=== PATIENT | female | born 1965 | race African-American/Black ===

== ENCOUNTER 2019-10-26 12:07 | Inpatient (IN) | payer OTHER ==
[2019-10-26 14:43] VITALS: BMI 23.3
--- NOTE | 2019-10-26 15:21 | HP ---
CIWA Score Nausea/Vomitin Muscle Tremors: 2 Anxiety: 3 Agitation: 3 Paroxysmal Sweats: 1-Minimal Palms Moist Orientation: 0-Oriented Tacttile Disturbances: 1-Very Mild Itch/Numbness Auditory Disturbances: 0-None Visual Disturbances: 0-None Headache: 2-Mild CIWA-Ar Total Score: 14 - Admission Criteria OASAS Guidelines: Admission for Medically Managed Detox: Requires at least one of the followin. CIWA greater than 12 2. Seizures within the past 24 hours 3. Delirium tremens within the past 24 hours 4. Hallucinations within the past 24 hours 5. Acute intervention needed for co occurring medical disorder 6. Acute intervention needed for co occurring psychiatric disorder 7. Severe withdrawal that cannot be handled at a lower level of care (continued vomiting, continued diarrhea, abnormal vital signs) requiring intravenous medication and/or fluids 8. Admitting History and Physical - Admission Chief Complaint: i need help to stop drinking alcohol History of Present Illness: this 54 years old female with alcohol dependence,seeking detox,withdrawal symptom, seen in [facility] in emergency,this morning refer for detox no seizure syncope last detox 06/23 did not recall the facility first time to this facility History Source: Patient Limitations to Obtaining History: No Limitations - Past Medical History [employer] TECHNICIAN: Yes: Syncope ...LMP Comment: 09/26/19 ...: No ...: 2 ...Para: 2 - Smoking History Smoking history: Current every day smoker Have you smoked in the past 12 months: Yes Aproximately how many cigarettes per day: 1 - Alcohol/Substance Use Hx Alcohol Use: Yes History of Substance Use: reports: Cocaine - Social History Usual Living Arrangement: Yes: With Child ADL: Independent Occupation: retail History of Recent Travel: No Other Social History: this 54 years old female with alcohol dependence,living with kaylee,. smoke occasionally,fail aa meeting,has a job,need help to stop drinking Admission ROS [facility] - HPI Chief Complaint: i need help to stop drinking alcohol Allergies/Adverse Reactions: Allergies Allergy/AdvReac Type Severity Reaction Status Date / Time Penicillins Allergy Verified 10/26/19 14:33 History of Present Illness: this 54 years old female with alcohol dependence,seeking detox,withdrawal symptom,seen in er at [facility] am, syncope denied seizure smoke occasionally last detox may 2019 ,did not recall the facility longest sobriety 293 days plan for going back to work,aa meeting multiple admissions in different detox facilities in the past never been in this facility history of frequent falls Exam Limitations: No Limitations - Ebola screening Have you traveled outside of the country in the last 21 days: No ([place]) Have you had contact with anyone from an Ebola affected area: No - Review of Systems Constitutional: Loss of Appetite, Night Sweats, Changes in sleep, Weakness EENT: reports: Nose Congestion Respiratory: reports: No Symptoms reported Cardiac: reports: No Symptoms Reported GI: reports: Nausea, Poor Appetite, Abdominal cramping : reports: No Symptoms Reported Musculoskeletal: reports: Back Pain, Muscle Pain Integumentary: reports: Dryness Neuro: reports: Headache, Tremors Endocrine: reports: No Symptoms Reported Hematology: reports: No Symptoms Reported Psychiatric: reports: No Sypmtoms Reported Other Systems: Reviewed and Negative Patient History - Patient Medical History Hx Anemia: No Hx Asthma: No Hx Chronic Obstructive Pulmonary Disease (COPD): No Hx Cancer: No Hx Cardiac Disorders: No Hx Congestive Heart Failure: No Hx Hypertension: No Hx Hypercholesterolemia: No Hx Pacemaker: No HX Cerebrovascular Accident: No Hx Seizures: No Hx Dementia: No Hx Diabetes: No Hx Gastrointestinal Disorders: No Hx Liver Disease: No Hx Genitourinary Disorders: No Hx Sexually Transmitted Disorders: No Hx Renal Disease (ESRD): No Hx Thyroid Disease: No Hx Human Immunodeficiency Virus (HIV): No (last 20 years negative) Hx Hepatitis C: No Hx Depression: No Hx Suicide Attempt: No Hx Bipolar Disorder: No Hx Schizophrenia: No Other Medical History: no suicidal,no homicidal,frequent falls - PPD History Previous Implant?: Yes Documented Results: Negative w/o proof Implanted On Prior [facility] Admission?: No PPD to be Administered?: Yes - Reproductive History Patient is a Female of Child Bearing Age (11 -55 yrs old): Yes Last Menstrual Period: 09/26/19 Patient : No - Smoking Cessation Smoking history: Current every day smoker Have you smoked in the past 12 months: Yes Aproximately how many cigarettes per day: 1 Hx Chewing Tobacco Use: No Initiated information on smoking cessation: Yes 'Breaking Loose' booklet given: 10/26/19 - Substance & Tx. History Hx Alcohol Use: Yes Hx Substance Use: No Substance Use Type: Alcohol Hx Substance Use Treatment: Yes (05/23 unknown facility) - Substances abused Alcohol Substance route: Oral Frequency: Daily Amount used: 1 LITER OR RUM, Age of first use: 18 Date of last use: 10/26/19 Admission Physical Exam [facility] - Vital Signs Vital Signs: Vital Signs - 24 hr 10/26/19 10/26/19 14:32 15:12 Temperature 99.0 F 99.0 F Pulse Rate 98 H 98 H Respiratory 20 20 Rate Blood Pressure 138/83 138/83 - Physical General Appearance: Yes: Moderate Distress, Tremorous, Irritable, Sweating, Anxious HEENTM: Yes: Normal ENT Inspection, OSCAR, Pharynx Normal Respiratory: Yes: Lungs Clear, Normal Breath Sounds, No Respiratory Distress Neck: Yes: Within Normal Limits, Supple, Trachea in good position Breast: Yes: Breast Exam Deferred Cardiology: Yes: Within Normal Limits, Regular Rhythm, Regular Rate, S1, S2 Abdominal: Yes: Within Normal Limits, Normal Bowel Sounds, Non Tender, Flat, Soft Genitourinary: Yes: Within Normal Limits Back: Yes: Muscle Spasm Musculoskeletal: Yes: Back pain, Muscle Pain Extremities: Yes: Tremors 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, Fully Oriented, Alert, Motor Strength 5/5 Integumentary: Yes: Dry Lymphatic: Yes: Within Normal Limits - Diagnostic (1) Alcohol dependence with uncomplicated withdrawal Current Visit: Yes Status: Acute (2) Alcohol intoxication Current Visit: Yes Status: Acute (3) Syncope Current Visit: Yes Status: Acute (4) Frequent falls Current Visit: Yes Status: Acute Cleared for Admission [facility] - Detox or Rehab [facility] Level of Care: Medically Managed Detox Regimen/Protocol: Librium Breathalyzer - Breathalyzer Breathalyzer: 0.141 Urine Drug Screen - Test Device Lot number: [id number] Expiration date: 06/04/21 - Control Is test valid?: Yes - Results Drug screen NEGATIVE: No Urine drug screen results: BZO-Benzodiazepines Inpatient Rehab Admission - Rehab Decision to Admit Inpatient rehab admission?: No
[2019-10-26] MEDS ORDERED: MAGNESIUM HYDROX 2400MG/30ML ORAL SUSPENSION 30 ML CUP PO PRN (15:42)
[2019-10-26] MEDS ORDERED: IBUPROFEN 400 MG TABLET (FP) PO PRN (15:42)
[2019-10-26] MEDS ORDERED: chlordiazePOXIDE HCL 25 MG CAPSULE PO PRN (15:42)
[2019-10-26] MEDS ORDERED: MENTHOL/PHENOL 1 EACH UD MM PRN (15:42)
[2019-10-26] MEDS ORDERED: ACETAMINOPHEN 325 MG TABLET (FP) PO PRN ×2 (15:42)
[2019-10-26] MEDS ORDERED: MAG HYDROX/AL HYDROX/SIMETH 30 ML UNIT-DOSE CUP PO PRN (15:42)
[2019-10-26] MEDS ORDERED: MAGNESIUM CITRATE 300 ML BOTTLE PO PRN (15:42)
[2019-10-26] MEDS: chlordiazePOXIDE HCL 25 MG CAPSULE PO SCH ×2 (16:47→22:29)
[2019-10-26] MEDS: MELATONIN 5 MG TABLETS PO PRN (22:29)
[2019-10-26] MEDS: THIAMINE HCL 100 MG TABLET (FP) PO SCH (22:29)
[2019-10-26] MEDS: METHOCARBAMOL 500 MG TABLET PO PRN (22:30)
[2019-10-27] MEDS: hydrOXYzine PAMOATE 25 MG CAPSULE (FP) PO PRN ×3 (00:43→13:36)
[2019-10-27] MEDS: chlordiazePOXIDE HCL 25 MG CAPSULE PO SCH ×4 (05:18→22:09)
[2019-10-27] MEDS: PRENATAL VITAMINS W/ FOLIC ACID TABLET (FP) PO SCH (10:17)
[2019-10-27 10:44] LABS: ALBUMIN 3.8 g/dl (3.4-5.0); BLOOD UREA NITROGEN 8.6 mg/dL (7-18); CALCIUM 9.3 mg/dL (8.5-10.1); CREATININE 0.7 mg/dL (0.55-1.3); POTASSIUM 3.3 mmol/L (3.5-5.1)
[2019-10-27 10:46] LABS: HEMATOCRIT 38.7 % (32.4-45.2); MCH 30.1 pg (25.7-33.7); MCHC 33.5 g/dl (32.0-36.0); MEAN PLT VOLUME 8.1 fl (7.5-11.1); PLATELET COUNT 219 K/MM3 (134-434); RBC 4.31 M/mm3 (3.60-5.2); RDW 14.7 % (11.6-15.6); WHITE BLOOD COUNT 4.8 K/mm3 (4.0-10.0)
--- NOTE | 2019-10-27 11:12 | PN ---
S CIWA - CIWA Score Nausea/Vomitin-No Nausea/No Vomiting Muscle Tremors: 3 Anxiety: 3 Agitation: 3 Paroxysmal Sweats: 3 Orientation: 0-Oriented Tacttile Disturbances: 0-None Auditory Disturbances: 0-None Visual Disturbances: 0-None Headache: 2-Mild CIWA-Ar Total Score: 14 S Progress Note (SOAP) Subjective: headache sweats shakes insomnia body aches restless cut over my left eyebrow i cant recall how it happened Objective: 10/27/19 11:09 Vital Signs Temperature 98.2 F 10/27/19 09:26 Pulse Rate 107 H 10/27/19 09:26 Respiratory Rate 18 10/27/19 09:26 Blood Pressure 127/76 10/27/19 09:26 O2 Sat by Pulse Oximetry (%) Laboratory Tests 10/27/19 10/27/19 07:45 07:45 WBC 4.8 RBC 4.31 Hgb 13.0 Hct 38.7 MCV 90.0 MCH 30.1 MCHC 33.5 RDW 14.7 Plt Count 219 MPV 8.1 Sodium 141 Potassium 3.3 L Chloride 101 Carbon Dioxide 29 Anion Gap 11 BUN 8.6 Creatinine 0.7 Est GFR (CKD-EPI)AfAm 115.45 Est GFR (CKD-EPI)NonAf 99.62 Random Glucose 100 Calcium 9.3 Total Bilirubin 1.0 AST 42 H ALT 28 Alkaline Phosphatase 86 Total Protein 7.0 Albumin 3.8 labs noted mild low potassium 3.3; will order kdur aaox3 ambulating no acute distress Assessment: 10/27/19 11:10 withdrawals superficial wound/laceration noted to left eyebrow. no s/s of infection noted Plan: continue detox increase fluids bacitracin oint ordered trazadone 50mg qhs while in detox motrin/tylenol prn
[2019-10-27] MEDS: BACITRACIN 15 GM TUBE TOPICAL OINTMENT TP SCH (11:54)
[2019-10-27] MEDS: POTASSIUM CHLORIDE TABS 20 MEQ TABLET.ER (FP) PO SCH ×2 (11:55→22:10)
[2019-10-27 13:19] LABS: SICKLE CELL SCREEN NEGATIVE (NEGATIVE)
[2019-10-27] MEDS: METHOCARBAMOL 500 MG TABLET PO PRN ×2 (13:36→22:11)
--- NOTE | 2019-10-27 13:39 | EKG ---
Test Reason : Blood Pressure : / mmHG Vent. Rate : 093 BPM Atrial Rate : 093 BPM P-R Int : 140 ms QRS Dur : 080 ms QT Int : 358 ms P-R-T Axes : 053 073 054 degrees QTc Int : 445 ms NORMAL SINUS RHYTHM NORMAL ECG NO PREVIOUS ECGS AVAILABLE Confirmed by CALVIN ARREGUIN MD ([id number]) on 10/27/2019 1:39:12 PM Referred By: DOC Confirmed By:CALVIN ARREGUIN MD
[2019-10-27] MEDS: traZODone HCL 50 MG TABLET (FP) PO SCH (22:09)
[2019-10-27] MEDS: THIAMINE HCL 100 MG TABLET (FP) PO SCH (22:10)
[2019-10-27] MEDS: MELATONIN 5 MG TABLETS PO PRN (22:11)
[2019-10-28] MEDS: chlordiazePOXIDE HCL 25 MG CAPSULE PO SCH ×4 (05:35→22:05)
[2019-10-28] MEDS: METHOCARBAMOL 500 MG TABLET PO PRN ×2 (06:14→22:05)
[2019-10-28] MEDS ORDERED: IBUPROFEN 600 MG TABLET (FP) PO PRN (10:05)
[2019-10-28] MEDS ORDERED: LOPERAMIDE HCL 2 MG CAPSULE PO PRN (10:05)
--- NOTE | 2019-10-28 10:09 | PN ---
[facility] CIWA - CIWA Score Nausea/Vomitin-No Nausea/No Vomiting Muscle Tremors: 3 Anxiety: 2 Agitation: 3 Paroxysmal Sweats: 2 Orientation: 0-Oriented Tacttile Disturbances: 0-None Auditory Disturbances: 0-None Visual Disturbances: 0-None Headache: 0-None Present CIWA-Ar Total Score: 10 S Progress Note (SOAP) Subjective: headache diarrhea sweats body aches dry/cracked lips Objective: 10/28/19 10:07 Vital Signs Temperature 98.4 F 10/28/19 09:31 Pulse Rate 113 H 10/28/19 09:31 Respiratory Rate 18 10/28/19 09:31 Blood Pressure 139/84 10/28/19 09:31 O2 Sat by Pulse Oximetry (%) Laboratory Tests 10/27/19 10/27/19 10/27/19 07:45 07:45 07:45 WBC 4.8 RBC 4.31 Hgb 13.0 Hct 38.7 MCV 90.0 MCH 30.1 MCHC 33.5 RDW 14.7 Plt Count 219 MPV 8.1 Sickle Cell Screen Negative Sodium 141 Potassium 3.3 L Chloride 101 Carbon Dioxide 29 Anion Gap 11 BUN 8.6 Creatinine 0.7 Est GFR (CKD-EPI)AfAm 115.45 Est GFR (CKD-EPI)NonAf 99.62 Random Glucose 100 Calcium 9.3 Total Bilirubin 1.0 AST 42 H ALT 28 Alkaline Phosphatase 86 Total Protein 7.0 Albumin 3.8 RPR Titer Nonreactive pt has kdur ordered repeat potassium level aaox3 ambulating no acute distress Assessment: 10/28/19 10:08 withdrawals Plan: continue detox increase fluids repeat labs (potassium ) motrin 600mg prn imodium prn vitamin a&d oint
[2019-10-28] MEDS: POTASSIUM CHLORIDE TABS 20 MEQ TABLET.ER (FP) PO SCH (10:13)
[2019-10-28] MEDS: PRENATAL VITAMINS W/ FOLIC ACID TABLET (FP) PO SCH (10:13)
[2019-10-28] MEDS: BACITRACIN 15 GM TUBE TOPICAL OINTMENT TP SCH (10:13)
[2019-10-28] MEDS: VITAMINS A AND D TOPICAL OINTMENT 60 GM TUBE TP SCH ×2 (11:36→21:29)
[2019-10-28] MEDS: BISMUTH SUBSALICYLATE 524 MG/30 ML UD PO PRN ×2 (11:45→17:28)
[2019-10-28 15:48] LABS: PH,URINE 7.5 (5.0-8.0); URINE APPEARANCE CLEAR; URINE BILIRUBIN NEGATIVE (NEGATIVE); URINE COLOR YELLOW; URINE GLUCOSE (UA) NEGATIVE (NEGATIVE); URINE KETONE NEGATIVE (NEGATIVE); URINE LEUK ESTERASE NEGATIVE (NEGATIVE); URINE NITRITE NEGATIVE (NEGATIVE); URINE PROTEIN NEGATIVE (NEGATIVE); URINE UROBILINOGEN 0.2 mg/dL (0.2-1.0)
[2019-10-28] MEDS: traZODone HCL 50 MG TABLET (FP) PO SCH (22:05)
[2019-10-28] MEDS: THIAMINE HCL 100 MG TABLET (FP) PO SCH (22:05)
[2019-10-28] MEDS: MELATONIN 5 MG TABLETS PO PRN (22:05)
[2019-10-29] MEDS ORDERED: chlordiazePOXIDE HCL 10 MG CAPSULE PO PRN
[2019-10-29] MEDS: POTASSIUM CHLORIDE TABS 20 MEQ TABLET.ER (FP) PO SCH ×2 (00:11→10:07)
[2019-10-29] MEDS: chlordiazePOXIDE HCL 10 MG CAPSULE PO SCH ×4 (06:23→22:15)
[2019-10-29] MEDS: VITAMINS A AND D TOPICAL OINTMENT 60 GM TUBE TP SCH ×4 (06:25→17:28)
[2019-10-29] MEDS: METHOCARBAMOL 500 MG TABLET PO PRN ×2 (10:07→22:16)
[2019-10-29] MEDS: PRENATAL VITAMINS W/ FOLIC ACID TABLET (FP) PO SCH (10:07)
[2019-10-29] MEDS: guaiFENesin 200 MG/10 ML 10 ML UNIT-DOSE CUPS PO PRN ×2 (10:10→22:17)
[2019-10-29] MEDS: BACITRACIN 15 GM TUBE TOPICAL OINTMENT TP SCH (10:11)
--- NOTE | 2019-10-29 12:06 | PN ---
S CIWA - CIWA Score Nausea/Vomitin-No Nausea/No Vomiting Muscle Tremors: 2 Anxiety: 1-Mildly Anxious Agitation: 1-Slight > Activity Paroxysmal Sweats: No Perspiration Orientation: 0-Oriented Tacttile Disturbances: 0-None Auditory Disturbances: 0-None Visual Disturbances: 0-None Headache: 0-None Present CIWA-Ar Total Score: 4 [facility] Progress Note (SOAP) Subjective: feeling much better little sweats cough Objective: 10/29/19 12:04 Vital Signs Temperature 98.2 F 10/29/19 09:27 Pulse Rate 107 H 10/29/19 09:27 Respiratory Rate 18 10/29/19 09:27 Blood Pressure 129/73 10/29/19 09:27 O2 Sat by Pulse Oximetry (%) Laboratory Tests 10/27/19 10/27/19 10/27/19 07:45 07:45 07:45 WBC 4.8 RBC 4.31 Hgb 13.0 Hct 38.7 MCV 90.0 MCH 30.1 MCHC 33.5 RDW 14.7 Plt Count 219 MPV 8.1 Sickle Cell Screen Negative Sodium 141 Potassium 3.3 L Chloride 101 Carbon Dioxide 29 Anion Gap 11 BUN 8.6 Creatinine 0.7 Est GFR (CKD-EPI)AfAm 115.45 Est GFR (CKD-EPI)NonAf 99.62 Random Glucose 100 Calcium 9.3 Total Bilirubin 1.0 AST 42 H ALT 28 Alkaline Phosphatase 86 Total Protein 7.0 Albumin 3.8 Urine Color Urine Appearance Urine pH Ur Specific [place] Urine Protein Urine Glucose (UA) Urine Ketones Urine Blood Urine Nitrite Urine Bilirubin Urine Urobilinogen Ur Leukocyte Esterase RPR Titer Nonreactive 10/27/19 10/29/19 10:18 08:30 WBC RBC Hgb Hct MCV MCH MCHC RDW Plt Count MPV Sickle Cell Screen Sodium Potassium 4.0 Chloride Carbon Dioxide Anion Gap BUN Creatinine Est GFR (CKD-EPI)AfAm Est GFR (CKD-EPI)NonAf Random Glucose Calcium Total Bilirubin AST ALT Alkaline Phosphatase Total Protein Albumin Urine Color Yellow Urine Appearance Clear Urine pH 7.5 Ur Specific [place] 1.004 L Urine Protein Negative Urine Glucose (UA) Negative Urine Ketones Negative Urine Blood Negative Urine Nitrite Negative Urine Bilirubin Negative Urine Urobilinogen 0.2 Ur Leukocyte Esterase Negative RPR Titer potassium WNL aaox3 ambulating no acute distress Assessment: 10/29/19 12:05 mild withdrawals Plan: continue detox robitussin prn d/c in am
[2019-10-29] MEDS: traZODone HCL 50 MG TABLET (FP) PO SCH (22:15)
[2019-10-29] MEDS: THIAMINE HCL 100 MG TABLET (FP) PO SCH (22:15)
[2019-10-29] MEDS: MELATONIN 5 MG TABLETS PO PRN (22:15)
[2019-10-30] MEDS: VITAMINS A AND D TOPICAL OINTMENT 60 GM TUBE TP SCH ×2 (01:05→06:19)
[2019-10-30] MEDS ORDERED: chlordiazePOXIDE HCL 10 MG CAPSULE PO SCH (05:00)
--- NOTE | 2019-10-30 09:01 | DS ---
[facility] Detox Discharge Summary Admission Date: 10/26/19 Discharge Date: 10/30/19 - History Present History: Alcohol Dependence - Physical Exam Results Vital Signs: Vital Signs Temperature 98.1 F 10/30/19 03:00 Pulse Rate 97 H 10/30/19 03:00 Respiratory Rate 18 10/30/19 03:30 Blood Pressure 121/77 10/30/19 03:00 O2 Sat by Pulse Oximetry (%) - Treatment Hospital Course: Detox Protocol Followed, Detoxed Safely, Responded well, Discharged Condition Good, Rehab Referral Accepted Patient has Accepted a Rehab Referral to: pt declined rehab; referral provided - Medication Discharge Medications: Ambulatory Orders NK [No Known Home Medication] 10/26/19 - Diagnosis (1) Alcohol dependence with uncomplicated withdrawal Current Visit: Yes Status: Chronic (2) Frequent falls Current Visit: Yes Status: Acute (3) Syncope Current Visit: Yes Status: Acute - AMA Did Patient Leave Against Medical Advice: No
[2019-10-30 09:20] VITALS: BP 110/72; PULSE 110; TEMP 97.9
[2019-10-30] MEDS: BACITRACIN 15 GM TUBE TOPICAL OINTMENT TP SCH (10:39)
[2019-10-30] MEDS: PRENATAL VITAMINS W/ FOLIC ACID TABLET (FP) PO SCH (10:39)
[2019-10-31] MEDS ORDERED: chlordiazePOXIDE HCL 10 MG CAPSULE PO ONE (05:00)
== END 2019-10-30 09:19 | disposition home or self-care (01) | DRG 775 ==
LOC: YASAS 12:07 → Y6N 16:02
PROVIDERS: ADMIT Allergy & Immunology; ATTEND Allergy & Immunology
PROC: HZ2ZZZZ Detoxification Services for Substance Abuse Treatment (ICD-10-PCS; principal; 2019-10-26)
DX: F10.230 Alcohol dependence with withdrawal, uncomplicated (principal); F10.220 Alcohol dependence with intoxication, uncomplicated; F17.210 Nicotine dependence, cigarettes, uncomplicated; R55 Syncope and collapse; R29.6 Repeated falls; S01.112A Laceration without foreign body of left eyelid and periocular area, initial encounter; X58.XXXA Exposure to other specified factors, initial encounter; Y93.89 Activity, other specified; Y92.89 Other specified places as the place of occurrence of the external cause; Y99.8 Other external cause status
CPT/HCPCS: 36415; 80053; 81003; 81025; 84132; 85027; 85660; 86593; 93005; 93010